=== PATIENT | male | born 1955 | race Caucasian/White ===

== ENCOUNTER 2017-06-26 09:45 | Observation (INO) | payer OTHER, SELFPAY ==
[2017-06-26] VITALS (9 sets, daily range): BP systolic 125–170; BP diastolic 72–97; PULSE 49–100; RESP 16–20; TEMP 36.6–37.2; O2SAT 92–97; BMI 17.7; BMI 25.7
--- NOTE | 2017-06-26 09:59 | CT_ITS ---
CT head/brain wo con HISTORY: Altered mental status, altered level of consciousness, unresponsive ITS.REASON: ams ORDERING PHYSICIAN: Alexis Kumari MD PATIENT AGE: 61 years COMPARISON: None TECHNIQUE: Axial images obtained without contrast. Brain and bone windows reviewed. FINDINGS: No midline shift, mass effect, intracranial hemorrhage, hydrocephalus, or extra-axial fluid collection is evident. There is generalized atrophy. There is some atherosclerotic calcification of the vertebral and carotid arteries. The calvarium has an unremarkable appearance. No mastoid effusion. No sinus air-fluid levels.. IMPRESSION: No acute intracranial finding.
[2017-06-26 10:18] LABS: Basophils % 0.7 % (0.1-2.0); Eosinophils # 0.2 K/mm3 (0.0-0.4); Eosinophils % 5.2 % (0.1-12.0); Hematocrit 47.7 % (42.0-52.0); Hemoglobin 15.5 g/dL (14.1-18.0); Lymphocytes # 1.5 K/mm3 (0.7-4.5); Lymphocytes % 32.1 K/mm3 (10-50); Mean Corpuscular HGB Conc 32.4 g/dL (31.8-35.4); Mean Corpuscular Hemoglobin 29.6 pg (27.0-31.2); Mean Corpuscular Volume 91.1 fl (80-94); Monocytes # 0.3 K/mm3 (0.1-1.0); Monocytes % 6.8 % (1.7-9.3); Neutrophils # 2.5 K/mm3 (1.8-7.8); Neutrophils % 55.2 % (37.0-80.0); Platelet Count 86 K/mm3 (142-424); Red Blood Count 5.23 M/mm3 (4.60-6.20); Red Cell Distribution Width 14.6 % (11.5-17.5); White Blood Count 4.5 K/mm3 (4.8-10.8)
[2017-06-26 10:41] LABS: INR 0.95 (0.9-1.1); Prothrombin Time 10.3 seconds (9.4-11.8)
[2017-06-26 10:44] LABS: Lactic Acid 0.5 mmol/L (0.4-2.0)
[2017-06-26 10:50] LABS: Alanine Aminotransferase 38 U/L (12-78); Albumin Level 2.4 gm/dL (3.4-5.0); Albumin/Globulin Ratio 0.7 (1.1-1.8); Alkaline Phosphatase 93 U/L (46-116); Anion Gap 11.8 mEq/L (5-15); Bilirubin,Total 0.2 mg/dL (0.2-1.0); Blood Urea Nitrogen 18 mg/dL (7-18); CKMB Relative Index 1.7 U/L (0-4.0); Carbon Dioxide 25 mmol/L (21.0-32.0); Chloride 112 mmol/L (98-107); Creatine Kinase 306 U/L (39-308); Creatine Kinase MB 5.3 mg/ml (0.0-3.6); Creatinine Clearance Estimated 37 mL/min (0-300); Creatinine,Serum 1.65 mg/dL (0.70-1.30); Estimated Glomerular Filt Rate 43 ml/min (>60); GFR (African American) 52 ML/MIN (>60); Globulin 3.6 gm/dl (1.3-3.2); Glucose 110 mg/dL (74-106); Sodium 145 mmol/L (136-145); Troponin I < 0.02 ng/ml (0.00-0.06)
[2017-06-26 10:50] LABS: Ammonia 33 umol/L (19-54)
[2017-06-26 10:56] LABS: Aspartate Amino Transferase 69 U/L (15-37); Potassium 3.8 mmoL/L (3.5-5.1)
[2017-06-26 11:44] LABS: Activated Partial Thrombo Time 27.4 seconds (23.6-34.0)
--- NOTE | 2017-06-26 12:41 | HMH.EDAMS ---
ED Disposition Clinical Impression: Benzodiazepine overdose Qualifiers: Encounter type: initial encounter Injury intent: accidental or unintentional Qualified Code(s): T42.4X1A - Poisoning by benzodiazepines, accidental (unintentional), initial encounter Change in mental status Qualifiers: Altered mental status type: unspecified Qualified Code(s): R41.82 - Altered mental status, unspecified Disposition: Admitted As Inpatient Condition on Discharge: Serious Time of Disposition: 12:41 - Critical Care Critical Care Time: No Attestation: On 06/26/17, the high probability of a clinically significant, sudden or life threatening deterioration of the following system(s) required my full and direct attention, intervention and personal management. The time I documented below is in addition to time spent performing reported procedures but includes the following listed in this critical care notation. Total Critical Care Time: 35 Vital system(s) involved:: Central Nervous System My critical care processes included: Assessment & monitoring of V/S, Initial and Re-exams, Data Review/Interpretation, Coordinating Care, Medication Orders and management, Documentation Medical Decision Making - Medical Records Medical records reviewed: Yes: I reviewed the patient's medical records. Vital Signs: 06/26/17 09:46 06/26/17 11:34 06/26/17 12:19 Temperature 98.1 F Temperature Source Oral Pulse Rate Pulse Rate [Right Brachial] 49 L 68 100 H Respiratory Rate 16 16 18 Blood Pressure Blood Pressure [Right Arm] 140/85 149/88 125/91 Blood Pressure Mean [Right Arm] 103 108 102 Blood Pressure Source [Right Arm] Automatic Cuff Automatic Cuff Automatic Cuff Blood Pressure Position [Right Arm] Sitting Supine Supine 02 Sat by Pulse Oximetry 92 L 95 97 Oxygen Delivery Method Room Air Room Air Room Air 06/26/17 13:29 06/26/17 14:30 Temperature 98.9 F Temperature Source Pulse Rate 65 Pulse Rate [Right Brachial] 82 Respiratory Rate 16 20 Blood Pressure 143/74 Blood Pressure [Right Arm] 139/72 Blood Pressure Mean [Right Arm] 94 Blood Pressure Source [Right Arm] Automatic Cuff Blood Pressure Position [Right Arm] Supine 02 Sat by Pulse Oximetry 97 Oxygen Delivery Method Room Air Room Air - Lab Data Lab results reviewed: Yes: I reviewed the patient's lab results. Lab Results 06/26/17 10:00: WBC 4.5 L, RBC 5.23, Hgb 15.5, Hct 47.7, MCV 91.1, MCH 29.6, MCHC 32.4, RDW 14.6, Plt Count 86 L, MPV 9.0, Neut % (Auto) 55.2, Lymph % (Auto) 32.1, [place] % (Auto) 6.8, Eos % (Auto) 5.2, Baso % (Auto) 0.7, Neut # (Auto) 2.5, Lymph # (Auto) 1.5, [place] # (Auto) 0.3, Eos # (Auto) 0.2, Baso # (Auto) 0.0 06/26/17 10:00: Sodium 145, Potassium 3.8, Chloride 112 H, Carbon Dioxide 25, Anion Gap 11.8, BUN 18, Creatinine 1.65 H, Estimated Creat Clear 37, Estimated GFR 43 L, Est GFR ( Amer) 52 L, Glucose 110 H, Calcium 8.0 L, Total Bilirubin 0.2, AST 69 H, ALT 38, Alkaline Phosphatase 93, Total Creatine Kinase 306, CK-MB (CK-2) 5.3 H, CK-MB (CK-2) Rel Index 1.7, Troponin I < 0.02, Total Protein 6.0 L, Albumin 2.4 L, Globulin 3.6 H, Albumin/Globulin Ratio 0.7 L 06/26/17 10:00: PT 10.3, INR 0.95, APTT 27.4 06/26/17 10:20: Ammonia 33 06/26/17 10:20: Lactic Acid 0.5 06/26/17 12:20: Urine Opiates Screen Negative, Ur Barbituates Screen Negative, Ur Phencyclidine Scrn Negative, Ur Amphetamines Screen Negative, U Methamphetamines Scrn Negative, U Benzodiazepines Scrn Positive H, Urine Cocaine Screen Negative, U Marijuana (THC) Screen Positive H Result diagrams: 06/26/17 10:00 06/26/17 10:00 Orders (Tests/Meds): ED MEDICATIONS Generic Name Dose Route Start Last Admin Trade Name Freq PRN Reason Stop Dose Admin Aspirin 81 mg 06/27/17 09:00 Aspirin 81mg Enteric Coated Tablet PO 07/27/17 08:59 DAILY TIFFANIE Buspirone HCl 10 mg 06/26/17 21:00 06/26/17 21:59 Buspar 10mg Tablet PO 07/26/17 20:59 Not Given BID TIFFANIE Donepezil HCl
[2017-06-26 12:46] LABS: Amphetamine/Metha Screen,Urine Negative ng/mL (<1000); Barbiturates Screen,Urine Negative ng/mL (<200); Benzodiazepines Screen,Urine Positive ng/mL (200); Cannabinoid Screen,Urine Positive ng/mL (<50); Cocaine Screen,Urine Negative ng/g (<300); Methadone Screen,Urine Negative ng/mL (<300); Opiate Screen,Urine Negative ng/mL (<300); Phencyclidine Screen,Urine Negative ng/mL (<25)
--- NOTE | 2017-06-26 19:21 | PC.NURSE ---
report given to tara beth rn
--- NOTE | 2017-06-26 20:07 | PC.NURSE ---
RN was made aware of high b/p.
--- NOTE | 2017-06-26 22:00 | PC.NURSE ---
PATIENT IS VERY LETHARGIC AT THIS TIME. STAFF ABLE TO AROUSE PATIENT TO NAME AND TOUCH, AND BECOMES VERY AGITATED/UNCOOPERATIVE WHEN STIMULATED. PATIENT IS UNABLE TO STAY AWAKE/BE ALERT ENOUGH TO TAKE PO MEDICATIONS AT THIS TIME. VSS. WILL CONTINUE TO MONITOR. SAFETY MEASURES IN PLACE, CALL LIGHT IN REACH.
--- NOTE | 2017-06-27 01:30 | PC.NURSE ---
PATIENT AWAKE AT THIS TIME. AMBULATED TO AND FROM BATHROOM WITH ASSIST X1. GAIT IS VERY UNSTEADY. PATIENT COOPERATIVE AND PLEASANT AT THIS TIME. NO C/O PAIN OR SOA. NO OTHER PROBLEMS NOTED AT THIS TIME. WILL CONTINUE TO MONITOR. SAFETY MEASURES IN PLACE, CALL LIGHT IN REACH.
[2017-06-27 04:00] VITALS: BP 177/90; PULSE 61; RESP 20; TEMP 36.7; O2SAT 92
--- NOTE | 2017-06-27 04:14 | PC.NURSE ---
PATIENT HAS SLEPT MOST OF THE SHIFT. HE WAS VERY LETHARGIC THE FIRST HALF OF SHIFT, AND WHEN HE DID AWAKEN WITH TOUCH AND VERBAL STIMULI HE WAS AGGRESSIVE AND UNCOOPERATIVE. PATIENT WOKE UP ON HIS OWN AROUND 0130 THIS AM AND AMBULATED TO BATHROOM WITH STAFF ASSIST X1. PATIENT'S GAIT WAS VERY UNSTEADY AT THAT TIME. BED ALARM IS IN USE AND PATIENT WAS RE-ORIENTED TO ROOM/CALL LIGHT. PATIENT WAS VERY PLEASANT AND COOPERATIVE AT THAT TIME. PATIENT IS CURRENTLY IN BED SLEEPING AT THIS TIME AND IS EASILY AWAKENED. NO OTHER PROBLEMS NOTED AT THIS TIME. VSS. WILL CONTINUE TO MONITOR. SAFETY MEASURES IN PLACE, CALL LIGHT IN REACH.
--- NOTE | 2017-06-27 07:11 | P.SWB_ITS ---
General - General Admission date: 06/26/17 Discharge date: 06/27/17 *Admission Date: 06/26/17 *Chief complaint: Depressed level of consciousness *History of present illness: 61-year-old male found by his fileila?e yesterday to be unconscious but in no distress. He was brought to the emergency department where workup was essentially unremarkable except for a drug screen positive for benzodiazepines and marijuana. Patient does admit to marijuana use. He does not really have much recollection of what led him being in the hospital. He tells me over the last 2-3 weeks he has been having episodes where he will pass out for a few seconds. I did explain to him that he was out longer than a few seconds yesterday and he has no explanation. He denies chest pain or shortness of breath. He is a cigarette smoker. His primary care physician is in [place] but he does not recall the name [facility] History Medical History: Reports:: Coronary Artery Disease, Hyperlipidemia, Hypertension , Myocardial Infarction Denies:: Cancer, Diabetes Mellitus Type 1, Diabetes Mellitus Type 2 Amputation: No - *Social History Educational Level: Attended Grade School Smoking Status: Current every day smoker Tobacco Type: cigarettes # Packs/Day (cigarettes): 1 Alcohol Intake: never Occupational Status: unemployed, disabled Household Members: none - Psychiatric History Expresses thoughts of harming self/others: None Suicide Plan Description: No Plan Review of Systems - Review of Systems Review of systems:: pertinent systems reviewed and negative unless documented below See HPI - *Neurologic Reports weakness, Reports other (lethargy) Exam Vital signs and Labs for Last 24 Hours: Temp Pulse Resp BP Pulse Ox 98.0 F 61 20 177/90 92 L 06/27/17 04:00 06/27/17 04:00 06/27/17 04:00 06/27/17 04:00 06/27/17 04:00 I & O for Last 24 hours: Intake & Output 06/24/17 06/25/17 06/26/17 06/27/17 11:59 11:59 11:59 11:59 Intake Total 1701 / 2701 Balance 1701 / 2701 Weight 174 lb 6 oz Hospital Course Hospital Course: She was admitted for observation. He was started on IV fluids. By the following morning patient was awake and alert. He denied pain. His recollection of events was minimal. He was discharged home and will follow up with his primary care physician DS: Diagnosis - Discharge Diagnosis (1) Benzodiazepine overdose Status: Resolved (2) Change in mental status Status: Resolved Discharge Meditcations Discharge Medications: Home Medications Medication Instructions Recorded Confirmed Type Aspirin [Aspirin 81mg EC Tab] 81 mg PO DAILY 06/26/17 06/26/17 History Buspirone HCl [Buspar 10mg tablet] 10 mg PO BID 06/26/17 06/26/17 History Docusate Sodium [Col-Rite] 50 mg PO BID 06/26/17 06/26/17 History Donepezil HCl [Aricept] 10 mg PO DAILY 06/26/17 06/26/17 History Doxazosin 8mg Tab 8 mg PO DAILY 06/26/17 06/26/17 History Metoprolol Tartrate [Lopressor 12.5 mg PO BID 06/26/17 06/26/17 History 25mg tablet] PARoxetine HCl [Paroxetine HCl] 40 mg PO DAILY 06/26/17 06/26/17 History Simvastatin 40 mg PO DAILY 06/26/17 06/26/17 History Disposition Disposition: Home, Self-Care
--- NOTE | 2017-06-27 07:21 | HMH.PHAVTE ---
[facility] Pharm[facility] VTE Monitoring - Patient Demographics Admission date: 06/26/17 Report Date: 06/27/17 Time: 07:21 Allergies/Adverse Reactions: Patient Allergies No Known Allergies Allergy (Verified 06/26/17 09:59) Height: 1.75 m Weight: 79.095 kg - VTE Risk Labs: VTE Related Lab Results Hgb 15.5 g/dL (14.1-18.0) 06/26/17 10:00 Hct 47.7 % (42.0-52.0) 06/26/17 10:00 Plt Count 86 K/mm3 (142-424) L 06/26/17 10:00 PT 10.3 seconds (9.4-11.8) 06/26/17 10:00 INR 0.95 (0.9-1.1) 06/26/17 10:00 APTT 27.4 seconds (23.6-34.0) 06/26/17 10:00 BUN 18 mg/dL (7-18) 06/26/17 10:00 Creatinine 1.65 mg/dL (0.70-1.30) H 06/26/17 10:00 Estimated Creat Clear 37 mL/min (0-300) 06/26/17 10:00 Was VTE Risk Assessment Performed: Yes VTE Score: 2 - Prophylaxis VTE Prophylaxis Ordered?: Yes Types of VTE Prophylaxis: TEDS Knee High Location of Applied Device: Bilateral Lower Extremeties - VTE Diagnosis Confirmed Treatment or plan recommended: Continue Current Treatment
[2017-06-27 07:41] VITALS: BP 175/96; PULSE 45; RESP 16; TEMP 36.6; O2SAT 94
--- NOTE | 2017-06-27 09:04 | PC.NURSE ---
Pt is a 61 year old admitted on 06/26/16 with altered mental status. Pt is A&Ox3 in NAD. VSS. Afebrile. Heart rate reg. Lungs CTA with coarse crackles noted to bilat bases. Abd soft and nontender /c active BS x4 quads. Last BM reported 06/25/17. Pt reports hesistancy with urination. Multiple scabbed areas noted to BUE, BLE, and bridge of nose. Pt reports multiple falls within the last week. IV found in bed. Pt has DC orders on chart and will not be restarted. Will continue to monitor pt status until discharged.
--- NOTE | 2017-06-27 11:16 | PC.NURSE ---
Addendum entered by Jia Carranza RN 06/27/17 11:30: Pt refused for nurse to remain in BR with him. Original Note: 1050 - Pt getting out of bed and bed alarm set off. Found pt standing at bedside stating he was going to the BR. Pt ambulated to BR with standby assist. This nurse and 2 fellow nurses standing outside door and heard pt fall in BR. Opened BR door and pt found on floor on his back. Pt denies pain or injury. Assisted pt to stand and zip his jeans. Pt escorted back to bed. Lying on bed was a green rectangular pill with a 3 on it. Took medication to pharmacy and was identified as Xanax 2mg. 1101 - Dr Arciniega notified of above. No new orders received. 1105 - Med taken back to pharmacy with Marcelo Rogers RN to be destroyed. Given to Bhargav Servin, pharmacist, to be disposed.
== END 2017-06-27 12:20 | disposition home or self-care (01) ==
LOC: ER 12:41 → 2ND 14:00
PROVIDERS: Admitting Provider Family Medicine; Emergency Provider Emergency Medicine; PCP Nurse Practitioner; Visit Provider Family Medicine
DX: T42.4X1A Poisoning by benzodiazepines, accidental (unintentional), initial encounter (principal); R41.82 Altered mental status, unspecified; F17.210 Nicotine dependence, cigarettes, uncomplicated; F12.10 Cannabis abuse, uncomplicated; I25.10 Atherosclerotic heart disease of native coronary artery without angina pectoris; I10 Essential (primary) hypertension; I25.2 Old myocardial infarction; E78.5 Hyperlipidemia, unspecified; Z79.82 Long term (current) use of aspirin; Z79.899 Other long term (current) drug therapy; Y92.9 Unspecified place or not applicable; R55 Syncope and collapse
CPT/HCPCS: 70450; 80053; 80305; 82140; 82550; 82553; 83605; 84484; 85025; 85610; 85730; 87040; 87077; 87186; 93005; 93041; 96365; 96366; 96375; 99284; G0378; J2310